=== PATIENT | male | born 1950 | race Caucasian/White ===

== ENCOUNTER → 2022-04-25 | Outpatient (CLI) | payer MEDICARE, BC ==
[~2022-04-25] VITALS: Ht 175.3 cm; Wt 81.8 kg
[~2022-04-25] MED LIST: CRESTOR5 MG PO; HYDROXYURE500 MG/CAP PO; PRINIVIL10 MG PO; ZETIA 10MG TAB10 MG PO; ZOLOFT 50MG50 MG PO
[2022-04-25 09:11] VITALS: TEMP 99.7
[2022-04-25 11:00] VITALS: BP 147/101; PULSE 66
== END ==
LOC: EUO 08:14
DX: Z01.84 Encounter for antibody response examination (principal); Z23 Encounter for immunization
CPT/HCPCS: Q0222

== ENCOUNTER → 2024-07-12 | Outpatient (CLI) | payer MEDICARE, BC | LOC: COL.VAS 09:30 | DX: I35.1 Nonrheumatic aortic (valve) insufficiency (principal) ==